=== PATIENT | female | born 1995 | race Caucasian/White ===

== ENCOUNTER 2016-11-10 17:29 | Emergency (ER) | payer OTHER ==
[~2016-11-10] VITALS: Ht 167.6 cm; Wt 68.0 kg
[2016-11-10] MEDS ORDERED: PROZAC10 MG PO (17:37)
[2016-11-10] MEDS ORDERED: VALTREX1000 MG PO (17:38)
[2016-11-10 19:25] VITALS: BP 121/68
== END 2016-11-10 20:25 | disposition home or self-care (01) ==
LOC: ER 17:29
DX: S09.90XA Unspecified injury of head, initial encounter (principal); Z88.1 Allergy status to other antibiotic agents; V43.52XA Car driver injured in collision with other type car in traffic accident, initial encounter; Y93.I9 Activity, other involving external motion; Y92.488 Other paved roadways as the place of occurrence of the external cause; Y99.9 Unspecified external cause status